=== PATIENT | female | born 1960 | race Hispanic/Latino ===

== ENCOUNTER → 2023-04-14 | Outpatient (CLI) | payer MEDICARE ==
[~2023-04-14] MED LIST: ACET-66 PO; ASCO500T19 PO; AZIT500T2 PO; GUAIF10 PO; ZINC50TA15 PO
== END | disposition home or self-care (01) ==
LOC: RAH 12:23
PROVIDERS: ATTEND Internal Medicine
DX: R20.2 Paresthesia of skin (principal); E11.8 Type 2 diabetes mellitus with unspecified complications; F17.200 Nicotine dependence, unspecified, uncomplicated
CPT/HCPCS: 71046; 72050